=== PATIENT | female | born 1990 | race Caucasian/White ===

== ENCOUNTER 2018-04-09 11:54 | Emergency (ER) | payer MEDICAID ==
[~2018-04-09] VITALS: Ht 154.9 cm; Wt 111.0 kg
[2018-04-09] MEDS ORDERED: SODIUM CHLORIDE 0.9% 1,000 ML IV ONE (12:33)
[2018-04-09 13:17] LABS: BASOPHILS % 0.4 % (0.0-2.0); HEMATOCRIT. 39.2 % (36.0-48.0); HEMOGLOBIN. 13.5 g/dL (12.0-16.0); LYMPHOCYTES % 31.3 % (20.0-50.0); MEAN CORPUSCULAR HEMOGLOBIN 31.3 pg (28.0-32.0); MEAN CORPUSCULAR VOLUME 90.8 fL (81.0-99.0); MEAN PLATELET VOLUME 9.3 fl (7.4-10.4); MONOCYTES % 3.2 % (2.0-8.0); NEUTROPHILS % 64.1 % (40.0-76.0); PLATELET 307 x1000/uL (130-400); RED BLOOD CELL COUNT 4.32 mill/uL (4.2-5.4); RED CELL DISTRIBUTION WIDTH 13.9 % (11.6-14.6)
[2018-04-09 13:24] LABS: CHLORIDE 103 mEq/L (98-107)
[2018-04-09 13:25] LABS: CLARITY URINE CLEAR (CLEAR); COLOR URINE ORANGE (YELLOW); KETONES URINE NEGATIVE (NEGATIVE); LEUKOCYTE ESTERASE URINE TRACE (NEGATIVE); NITRITE URINE NEGATIVE (NEGATIVE); OCCULT BLOOD URINE 3+ (NEGATIVE); PH URINE 5.5 (4.5-8.0); PROTEIN URINE 1+ (NEGATIVE); SPECIFIC GRAVITY URINE 1.014 (1.005-1.030); UROBILINOGEN URINE 0.2 E.U./dL (0.2-1.0)
[2018-04-09 13:26] LABS: PARTIAL THROMBOPLASTIN TIME 30.1 sec (23.4-31.0); PROTHROMBIN TIME 10.3 sec (9.1-11.1)
[2018-04-09 13:42] LABS: *AMPHETAMINES SCREEN URINE NEGATIVE (NEGATIVE); *BARBITURATES SCREEN URINE NEGATIVE (NEGATIVE); *BENZODIAZEPINES SCREEN URINE NEGATIVE (NEGATIVE); *COCAINE SCREEN URINE NEGATIVE (NEGATIVE); METHADONE URINE SCREEN NEGATIVE (NEGATIVE)
[2018-04-09 13:43] LABS: CANNABINOID URINE SCREEN NEGATIVE (NEGATIVE); OPIATES URINE SCREEN NEGATIVE (NEGATIVE); PHENCYCLIDINE URINE SCREEN NEGATIVE (NEGATIVE)
[2018-04-09 13:47] LABS: B-HCG QUANTITATIVE 112901 mIU/mL (<3)
[2018-04-09] MEDS ORDERED: ACETAMINOPHEN 325MG TABLET PO ONE (15:30)
[2018-04-09 16:31] VITALS: BP 100/62
== END 2018-04-09 16:35 | disposition home or self-care (01) ==
LOC: ER 11:54
DX: O20.0 Threatened abortion (principal); O23.41 Unspecified infection of urinary tract in pregnancy, first trimester; Z3A.08 8 weeks gestation of pregnancy; E86.0 Dehydration; R11.0 Nausea
CPT/HCPCS: 36415; 76801; 76817; 80053; 80305; 81003; 81025; 84702; 85025; 85610; 85730; 86850; 86900; 86901; 87086; 96360; 96361; 99284; J7030

== ENCOUNTER 2018-04-21 02:06 | Emergency (ER) | payer MEDICAID ==
[~2018-04-21] VITALS: Ht 152.4 cm; Wt 102.0 kg
[2018-04-21 02:35] VITALS: BP 112/59
== END 2018-04-21 05:00 | disposition left against medical advice (07) ==
LOC: ER 02:06
DX: O26.891 Other specified pregnancy related conditions, first trimester (principal); R10.9 Unspecified abdominal pain; Z3A.10 10 weeks gestation of pregnancy; Z53.21 Procedure and treatment not carried out due to patient leaving prior to being seen by health care provider

== ENCOUNTER 2018-07-14 10:06 | Observation (INO) | payer OTHER ==
[~2018-07-14] VITALS: Ht 152.4 cm; Wt 122.5 kg
== END 2018-07-14 11:51 | disposition home or self-care (01) ==
LOC: 8 EST LDRP 10:06
PROVIDERS: ADMIT Obstetrics & Gynecology; ATTEND Obstetrics & Gynecology
DX: O26.852 Spotting complicating pregnancy, second trimester (principal); O26.892 Other specified pregnancy related conditions, second trimester; M54.9 Dorsalgia, unspecified; R51 Headache; R10.9 Unspecified abdominal pain; Z3A.24 24 weeks gestation of pregnancy
CPT/HCPCS: 76815; G0378; 99281

== ENCOUNTER 2018-10-30 08:11 | Observation (INO) | payer OTHER ==
[2018-10-30] MEDS ORDERED: PNV11TAB PO (09:25)
== END 2018-10-30 10:46 | disposition home or self-care (01) ==
LOC: 8 EST LDRP 08:11
PROVIDERS: ADMIT Specialist; ATTEND Specialist
DX: O62.9 Abnormality of forces of labor, unspecified (principal); Z3A.39 39 weeks gestation of pregnancy
CPT/HCPCS: 99281; G0378

== ENCOUNTER 2018-11-01 03:16 | Observation (INO) | payer OTHER ==
[~2018-11-01] VITALS: Ht 152.4 cm; Wt 122.5 kg
[~2018-11-01 03:16] MED LIST: PNV11TAB PO
[2018-11-01] MEDS ORDERED: PRENATAL (04:17)
== END 2018-11-01 05:25 | disposition home or self-care (01) ==
LOC: 8 EST LDRP 03:16
PROVIDERS: ADMIT Specialist; ATTEND Specialist
DX: O62.9 Abnormality of forces of labor, unspecified (principal); O26.893 Other specified pregnancy related conditions, third trimester; R42 Dizziness and giddiness; R10.13 Epigastric pain; R51 Headache; R35.0 Frequency of micturition; Z3A.40 40 weeks gestation of pregnancy
CPT/HCPCS: 99281; G0378

== ENCOUNTER 2018-11-02 02:37 | Inpatient (IN) | payer OTHER ==
[~2018-11-02] VITALS: Ht 154.9 cm; Wt 122.5 kg
[~2018-11-02 02:37] MED LIST changes: -PNV11TAB PO; +PRENATAL
[2018-11-02] MEDS ORDERED: DEXT 5%/LR + PITOCIN 20UNITS/L 1,000 ML IV SCH (03:37)
[2018-11-02] MEDS ORDERED: NALOXONE HCL 0.4 MG/ML 1ML VIAL IM PRN (03:45)
[2018-11-02] MEDS ORDERED: CARBOPROST TROMETHAMINE 250 MCG/ML AMPUL IM PRN (03:45)
[2018-11-02] MEDS ORDERED: LIDOCAINE HCL 1% 20ML VIAL (Pyxis) INJ INFIL SCH (03:45)
[2018-11-02] MEDS ORDERED: METHYLERGONOVINE MALEATE 0.2 MG/ML IM PRN ×2 (03:45→09:00)
[2018-11-02] MEDS ORDERED: MISOPROSTOL 100MCG TABLET VG SCH (03:45)
[2018-11-02] MEDS: LACTATED RINGERS 1,000 ML IV SCH ×2 (03:48→04:41)
[2018-11-02] MEDS ORDERED: AMPICILLIN 2,000 MG in SODIUM CHLORIDE 0.9% 100 ML IV SCH (04:00)
[2018-11-02 04:10] LABS: BASOPHILS % 0.2 % (0.0-2.0); EOSINOPHILS % 0.9 % (0.0-5.0); HEMATOCRIT. 34.6 % (36.0-48.0); HEMOGLOBIN. 11.9 g/dL (12.0-16.0); LYMPHOCYTES % 23.8 % (20.0-50.0); MEAN CORPUSCULAR HEMOGLOBIN 31.1 pg (28.0-32.0); MEAN CORPUSCULAR VOLUME 89.9 fL (81.0-99.0); MEAN PLATELET VOLUME 10.5 fl (7.4-10.4); MONOCYTES % 4.7 % (2.0-8.0); NEUTROPHILS % 70.4 % (40.0-76.0); PLATELET 212 x1000/uL (130-400); RED BLOOD CELL COUNT 3.84 mill/uL (4.2-5.4); RED CELL DISTRIBUTION WIDTH 14.5 % (11.6-14.6)
[2018-11-02 04:11] LABS: CLARITY URINE CLOUDY (CLEAR); COLOR URINE YELLOW (YELLOW); KETONES URINE NEGATIVE (NEGATIVE); LEUKOCYTE ESTERASE URINE 3+ (NEGATIVE); NITRITE URINE NEGATIVE (NEGATIVE); OCCULT BLOOD URINE TRACE (NEGATIVE); PH URINE 6.5 (4.5-8.0); PROTEIN URINE NEGATIVE (NEGATIVE); SPECIFIC GRAVITY URINE 1.005 (1.005-1.030); UROBILINOGEN URINE 0.2 E.U./dL (0.2-1.0)
[2018-11-02 04:19] LABS: INR 0.9; PARTIAL THROMBOPLASTIN TIME 28.7 sec (23.4-31.0); PROTHROMBIN TIME 9.5 sec (9.6-11.0)
[2018-11-02 04:20] LABS: *AMPHETAMINES SCREEN URINE NEGATIVE (NEGATIVE); *BARBITURATES SCREEN URINE NEGATIVE (NEGATIVE)
[2018-11-02 04:21] LABS: *BENZODIAZEPINES SCREEN URINE NEGATIVE (NEGATIVE); *COCAINE SCREEN URINE NEGATIVE (NEGATIVE); CANNABINOID URINE SCREEN NEGATIVE (NEGATIVE); OPIATES URINE SCREEN NEGATIVE (NEGATIVE); PHENCYCLIDINE URINE SCREEN NEGATIVE (NEGATIVE)
[2018-11-02 04:22] LABS: METHADONE URINE SCREEN NEGATIVE (NEGATIVE)
[2018-11-02 05:17] LABS: HEPATITIS B SURFACE ANTIGEN NEGATIVE
[2018-11-02] MEDS: BUTORPHANOL TARTRATE 2 MG/ML VIAL IV PRN ×2 (06:16→12:03)
[2018-11-02] MEDS: DEXT 5%/LR + PITOCIN 20UNITS/L 1,000 ML IV SCH ×3 (08:28→14:32)
[2018-11-02] MEDS ORDERED: RHO(D) IMMUNE GLOBULIN 300 MCG/SYR IM PRN (09:00)
[2018-11-02] MEDS ORDERED: LANOLIN OINT 7GM TUBE TOP PRN (09:00)
[2018-11-02] MEDS ORDERED: IBUPROFEN 400MG TABLET PO PRN (09:00)
[2018-11-02] MEDS ORDERED: AMPICILLIN 1,000 MG in SODIUM CHLORIDE 0.9% 50 ML IV SCH (10:00)
[2018-11-02] MEDS ORDERED: MISOPROSTOL 200MCG TABLET RC ONE (10:30)
[2018-11-02] MEDS: IBUPROFEN 800MG TABLET PO PRN ×2 (10:56→18:07)
[2018-11-02 11:56] LABS: BASOPHILS % 0.2 % (0.0-2.0); EOSINOPHILS % 0.1 % (0.0-5.0); HEMATOCRIT. 27.4 % (36.0-48.0); HEMOGLOBIN. 9.3 g/dL (12.0-16.0); LYMPHOCYTES % 13.1 % (20.0-50.0); MEAN CORPUSCULAR HEMOGLOBIN 31.2 pg (28.0-32.0); MEAN CORPUSCULAR VOLUME 92.1 fL (81.0-99.0); MEAN PLATELET VOLUME 10.7 fl (7.4-10.4); MONOCYTES % 4.2 % (2.0-8.0); NEUTROPHILS % 82.4 % (40.0-76.0); PLATELET 227 x1000/uL (130-400); RED BLOOD CELL COUNT 2.98 mill/uL (4.2-5.4); RED CELL DISTRIBUTION WIDTH 14.5 % (11.6-14.6)
[2018-11-02 15:20] LABS: BASOPHILS % 0.2 % (0.0-2.0); HEMATOCRIT. 26.7 % (36.0-48.0); HEMOGLOBIN. 8.8 g/dL (12.0-16.0); LYMPHOCYTES % 8.4 % (20.0-50.0); MEAN CORPUSCULAR HEMOGLOBIN 30.2 pg (28.0-32.0); MEAN CORPUSCULAR VOLUME 91.5 fL (81.0-99.0); MEAN PLATELET VOLUME 10.8 fl (7.4-10.4); MONOCYTES % 3.2 % (2.0-8.0); NEUTROPHILS % 88.2 % (40.0-76.0); PLATELET 202 x1000/uL (130-400); RED BLOOD CELL COUNT 2.91 mill/uL (4.2-5.4); RED CELL DISTRIBUTION WIDTH 14.5 % (11.6-14.6)
[2018-11-02 15:30] VITALS: BP 100/62
[2018-11-02 16:30] VITALS: BP 110/67
[2018-11-02 19:45] VITALS: BP 102/54
[2018-11-03] MEDS: IBUPROFEN 800MG TABLET PO PRN ×2 (02:03→15:48)
[2018-11-03 05:45] VITALS: BP 94/62
[2018-11-03 06:55] LABS: BASOPHILS % 0.3 % (0.0-2.0); EOSINOPHILS % 0.6 % (0.0-5.0); LYMPHOCYTES % 25.4 % (20.0-50.0); MEAN CORPUSCULAR HEMOGLOBIN 30.7 pg (28.0-32.0); MEAN CORPUSCULAR VOLUME 92.3 fL (81.0-99.0); MEAN PLATELET VOLUME 10.3 fl (7.4-10.4); MONOCYTES % 5.7 % (2.0-8.0); PLATELET 166 x1000/uL (130-400); RED BLOOD CELL COUNT 2.03 mill/uL (4.2-5.4); RED CELL DISTRIBUTION WIDTH 14.7 % (11.6-14.6)
[2018-11-03 08:00] VITALS: BP 100/60
[2018-11-03 08:37] LABS: HEMATOCRIT. 18.7 % (36.0-48.0); HEMOGLOBIN. 6.2 g/dL (12.0-16.0)
[2018-11-03 14:00] VITALS: BP 100/58
[2018-11-03] MEDS: PRENATAL VIT/FE FUMARATE/FA TABLET PO SCH (15:48)
[2018-11-03 20:00] VITALS: BP 116/65
[2018-11-04] MEDS: IBUPROFEN 800MG TABLET PO PRN ×2 (01:25→08:06)
[2018-11-04 04:00] VITALS: BP 99/57
[2018-11-04 07:12] LABS: BASOPHILS % 0.3 % (0.0-2.0); EOSINOPHILS % 1.6 % (0.0-5.0); LYMPHOCYTES % 34.3 % (20.0-50.0); MEAN CORPUSCULAR HEMOGLOBIN 31.1 pg (28.0-32.0); MEAN CORPUSCULAR VOLUME 93.1 fL (81.0-99.0); MEAN PLATELET VOLUME 10.2 fl (7.4-10.4); MONOCYTES % 4.2 % (2.0-8.0); NEUTROPHILS % 59.6 % (40.0-76.0); PLATELET 168 x1000/uL (130-400); RED BLOOD CELL COUNT 1.77 mill/uL (4.2-5.4); RED CELL DISTRIBUTION WIDTH 14.7 % (11.6-14.6)
[2018-11-04 07:44] LABS: HEMATOCRIT. 16.5 % (36.0-48.0); HEMOGLOBIN. 5.5 g/dL (12.0-16.0)
[2018-11-04 08:00] VITALS: BP 102/61
[2018-11-04] MEDS: PRENATAL VIT/FE FUMARATE/FA TABLET PO SCH (08:05)
[2018-11-04 12:00] VITALS: BP 98/57
== END 2018-11-04 14:30 | disposition home or self-care (01) | DRG 560 ==
LOC: 8 EST LDRP 02:37 → OBSVTOIN 02:37 → 8EST 15:15
PROVIDERS: ADMIT Obstetrics & Gynecology; ATTEND Obstetrics & Gynecology
PROC: 10E0XZZ Delivery of Products of Conception, External Approach (ICD-10-PCS; principal; 2018-11-02)
PROC: 0UQGXZZ Repair Vagina, External Approach (ICD-10-PCS; 2018-11-02)
DX: O48.0 Post-term pregnancy (principal); O72.1 Other immediate postpartum hemorrhage; D72.829 Elevated white blood cell count, unspecified; O90.89 Other complications of the puerperium, not elsewhere classified; O90.81 Anemia of the puerperium; N85.8 Other specified noninflammatory disorders of uterus; O71.4 Obstetric high vaginal laceration alone; D64.9 Anemia, unspecified; Z37.0 Single live birth; Z3A.40 40 weeks gestation of pregnancy
CPT/HCPCS: 36415; 80305; 86592; 86703; 86762; 86850; 86900; 87340; 99281; G0378; J0290; J0595; J2590; J3490; J7050; A4315

== ENCOUNTER 2021-01-10 10:36 | Emergency (ER) | payer MEDICAID, OTHER ==
[~2021-01-10] VITALS: Ht 152.4 cm; Wt 110.0 kg
[2021-01-10] MEDS ORDERED: BACITRACIN ZINC OINT UDPKT TOP ONE (11:45)
[2021-01-10] MEDS ORDERED: LIDOCAINE HCL/PF 1% 10 MG/ML 5ML VIAL INFIL ONE (11:45)
[2021-01-10] MEDS ORDERED: IBUPROFEN 600MG TABLET PO STA (11:51)
[2021-01-10 12:09] VITALS: BP 108/65
[2021-01-10] MEDS ORDERED: CEPH500C2 PO (12:52)
[2021-01-10] MEDS ORDERED: IBUP-2029 PO (12:52)
[2021-01-10] MEDS ORDERED: SULF1TAB48 PO (12:52)
== END 2021-01-10 13:11 | disposition home or self-care (01) ==
LOC: ER 10:36
DX: L02.213 Cutaneous abscess of chest wall (principal)
CPT/HCPCS: 10060; 99283; J3490; Z7610

== ENCOUNTER 2021-01-12 14:35 | Emergency (ER) | payer MEDICAID ==
[~2021-01-12] VITALS: Ht 152.4 cm; Wt 110.0 kg
[~2021-01-12 14:35] MED LIST changes: +CEPH500C2 PO; +IBUP-2029 PO; +SULF1TAB48 PO
[2021-01-12 15:00] VITALS: BP 132/74
== END 2021-01-12 18:59 | disposition left against medical advice (07) ==
LOC: ER 14:35
DX: Z53.21 Procedure and treatment not carried out due to patient leaving prior to being seen by health care provider (principal)

== ENCOUNTER 2021-10-29 16:51 | Emergency (ER) | payer MEDICAID ==
[~2021-10-29] VITALS: Ht 152.4 cm; Wt 113.0 kg
[2021-10-29] MEDS ORDERED: KETOROLAC 60MG/2ML VIAL IM ONE (19:00)
[2021-10-29] MEDS ORDERED: IBUP-2029 MT (20:03)
[2021-10-29 21:43] VITALS: BP 135/85
== END 2021-10-29 21:45 | disposition home or self-care (01) ==
LOC: ER 16:51
DX: S20.219A Contusion of unspecified front wall of thorax, initial encounter (principal); R51.9 Headache, unspecified; R03.0 Elevated blood-pressure reading, without diagnosis of hypertension; W01.198A Fall on same level from slipping, tripping and stumbling with subsequent striking against other object, initial encounter; Y93.89 Activity, other specified; Y92.010 Kitchen of single-family (private) house as the place of occurrence of the external cause
CPT/HCPCS: 71045; 81025; 96372; 99283; J1885

== ENCOUNTER 2023-03-12 12:46 | Emergency (ER) | payer MEDICAID, OTHER ==
[~2023-03-12] VITALS: Ht 152.4 cm; Wt 127.0 kg
[~2023-03-12 12:46] MED LIST changes: +IBUP-2029 MT
[2023-03-12 13:01] VITALS: TEMP 99; O2SAT 98
[2023-03-12 15:07] VITALS: BP 145/90; PULSE 81; RESP 17
[2023-03-12] MEDS ORDERED: ACETAMINOPHEN WITH CODEINE 300/30MG TABLET PO STA (15:07)
[2023-03-12] MEDS ORDERED: NAPR-681 PO (16:55)
== END 2023-03-12 17:39 | disposition home or self-care (01) ==
LOC: ER 12:46
DX: S00.93XA Contusion of unspecified part of head, initial encounter (principal); M25.511 Pain in right shoulder; M25.551 Pain in right hip; W01.0XXA Fall on same level from slipping, tripping and stumbling without subsequent striking against object, initial encounter; Y93.89 Activity, other specified; Y92.89 Other specified places as the place of occurrence of the external cause; Y99.8 Other external cause status
CPT/HCPCS: 73030; 81025; 99284

== ENCOUNTER 2024-11-10 14:42 | Emergency (ER) | payer OTHER ==
[~2024-11-10] VITALS: Ht 154.9 cm; Wt 118.0 kg
[~2024-11-10 14:42] MED LIST changes: +NAPR-681 PO
[2024-11-10 14:43] VITALS: O2SAT 98
[2024-11-10 14:45] VITALS: BP 169/85; PULSE 84; RESP 18; TEMP 36.6; O2SAT 99
== END 2024-11-10 18:01 | disposition left against medical advice (07) ==
LOC: ER 14:42
DX: R60.9 Edema, unspecified (principal); R06.02 Shortness of breath; Z53.21 Procedure and treatment not carried out due to patient leaving prior to being seen by health care provider